=== PATIENT | male | born 1975 | race Caucasian/White ===

== ENCOUNTER 2017-07-21 20:31 | Emergency (ER) | payer BC, OTHER ==
[2017-07-21 20:38] VITALS: RESP 18
--- NOTE | 2017-07-21 20:50 | ED ---
General Adult HPI - General Chief complaint: Extremity Injury, Upper Stated complaint: arm injury Time Seen by Provider: 07/21/17 20:45 Source: patient, RN notes reviewed Mode of arrival: ambulatory Limitations: no limitations - History of Present Illness Initial comments: 41-year-old male presents to the emergency department with a chief complaint of right wrist pain. He stopped a piece of wood with his wrist earlier today and has continued to have pain. He states he was concerns without that he should be seen. He reveals ER visit the wrist however there is some pain at the ulnar aspect. Patient denies any other injury from the incident. Patient denies any other symptoms at this time. Pain is moderate.Patient denies any recent fever, chills, shortness of breath, chest pain, back pain, abdominal pain, nausea vomiting, numbness or tingling, dysuria or hematuria, constipation or diarrhea, headaches or visual changes, or any other current symptoms. - Related Data Home Medications Medication Instructions Recorded Confirmed Omeprazole [PriLOSEC] 20 mg PO AC-BRKFST 03/04/15 03/06/15 Previous Rx's Medication Instructions Recorded HYDROcodone/APAP 5-325MG [[place] 1 tab PO Q6HR PRN #20 tab 05/05/16 5-325] Hydrocortisone [Anusol-Hc] 30 gm RC BID #1 tube 05/05/16 Polyethylene Glycol 3350 [Miralax] 17 gm PO DAILY #527 gm 05/05/16 Allergies Allergy/AdvReac Type Severity Reaction Status Date / Time No Known Allergies Allergy Verified 05/05/16 12:04 Review of Systems ROS Statement: Those systems with pertinent positive or pertinent negative responses have been documented in the HPI. ROS Other: All systems not noted in ROS Statement are negative. Past Medical History Past Medical History: GERD/Reflux Additional Past Medical History / Comment(s): kidney stones History of Any Multi-Drug Resistant Organisms: None Reported Past Surgical History: Cholecystectomy Past Psychological History: No Psychological Hx Reported Smoking Status: Current every day smoker Past Alcohol Use History: Occasional Past Drug Use History: None Reported General Exam - General Exam Comments Initial Comments: General: The patient is awake and alert, in no distress, and does not appear acutely ill. Neck: The neck is supple, there is no tenderness. Cardiovascular: There is a regular rate and rhythm. No murmur, rub or gallop is appreciated. Respiratory: Lungs are clear to auscultation, respirations are non-labored, breath sounds are equal. No wheezes, stridor, rales, or rhonchi. Musculoskeletal: Sensation intact with 2+ pulses. X-ray. Fund motion of right elbow. Patient has find motion of the right wrist with some pain at the distal ulna. No tenderness throughout the right hand. No bruising or deformity noted. Neurological: CN II-XII intact, There are no obvious motor or sensory deficits. Coordination appears grossly intact. Speech is normal. Skin: Skin is warm and dry and no rashes or lesions are noted. Psychiatric: Normal mood and affect. Limitations: no limitations Course Vital Signs 07/21/17 20:34 Temperature 98 F Pulse Rate 93 Respiratory 18 Rate Blood Pressure 141/82 O2 Sat by Pulse 95 Oximetry Medical Decision Making - Medical Decision Making 41-year-old male presents for right wrist pain after a injury. At this time x- rays reviewed that does not show any acute injury. This time we discussed right wrist contusion. We discussed return parameters discussed follow-up and all patient's questions. They stated the Frankie management this plan. All questions have been answered. This time the patient will be discharged home. - Radiology Data Radiology results: report reviewed, image reviewed Disposition Clinical Impression: Contusion of right wrist Disposition: HOME SELF-CARE Condition: Stable Instructions: Contusion in Adults (ED) Additional Instructions: Please use medication as discussed. Please follow up with family doctor if symptoms have not improved over the next two days. Please return to the emergency room if your symptoms increase or worsen or for any other concerns. Referrals: Olamide Munroe MD [Primary Care Provider] - 1-2 days Time of Disposition: 21:55
--- NOTE | 2017-07-21 21:54 | XR ---
EXAMINATION TYPE: XR wrist complete RT , 4 VIEWS DATE OF EXAM ORDERED: 07/21/2017 HISTORY: Pain. COMPARISON: None. FINDINGS: No fracture, dislocation or other acute osseous lesion is seen. IMPRESSION: NORMAL RIGHT WRIST.
[2017-07-21 21:55] VITALS: BP 134/70; PULSE 80; TEMP 97
== END 2017-07-21 21:57 | disposition home or self-care (01) ==
LOC: EC 20:31
DX: S60.211A Contusion of right wrist, initial encounter (principal); K21.9 Gastro-esophageal reflux disease without esophagitis; F17.200 Nicotine dependence, unspecified, uncomplicated; Z79.899 Other long term (current) drug therapy; X50.9XXA Other and unspecified overexertion or strenuous movements or postures, initial encounter; Y93.89 Activity, other specified; Y92.89 Other specified places as the place of occurrence of the external cause
CPT/HCPCS: 99283

== ENCOUNTER → 2018-09-13 | Outpatient (CLI) | payer BC, OTHER ==
--- NOTE | 2018-09-13 20:56 | XR ---
EXAMINATION TYPE: XR foot limited bilateral DATE OF EXAM: 09/13/2018 COMPARISON: None HISTORY: Bilateral plantar nodules. TECHNIQUE: 2 views each foot FINDINGS: Metatarsals are intact. I see no fracture nor dislocation. There is no sign of radiopaque f oreign body. There are no erosions. There are no pathologic calcifications. There are right side plan tar and Achilles calcaneal spurs. IMPRESSION: Calcaneal spurring on the right side. No fracture. No sign of inflammatory arthritis.
== END ==
LOC: LABMAIN 19:40
PROVIDERS: ATTEND Nurse Practitioner
DX: M77.31 Calcaneal spur, right foot (principal)

== ENCOUNTER → 2022-03-24 | Outpatient (CLI) | payer OTHER ==
--- NOTE | 2022-03-24 09:24 | US ---
EXAMINATION TYPE: US abdomen limited DATE OF EXAM: 03/24/2022 COMPARISON: NONE CLINICAL HISTORY: R10.31 Right lower quadrant pain. Right lower abd pain for 4 days and it stopped, n o injury, no palp, assess for hernia Scanned soft tissue at area of pain in RLQ and there was no sonographic evidence of a herniation with or without valsalva. No evidence of mass or cystic structure. IMPRESSION: No evidence for herniation, no mass or cystic structure identified.
== END | disposition home or self-care (01) ==
LOC: RADUSWWP 08:20
PROVIDERS: ATTEND Family Medicine
DX: R10.31 Right lower quadrant pain (principal)
CPT/HCPCS: 76705

== ENCOUNTER → 2023-06-21 | Outpatient (CLI) | payer OTHER ==
--- NOTE | 2023-06-26 17:05 | CT ---
EXAMINATION TYPE: CT urogram wo/w con DATE OF EXAM: 06/21/2023 COMPARISON: None HISTORY: 47-year-old male R31.0, gross hematuria TECHNIQUE: Contiguous axial scanning of the abdomen and pelvis performed without and with IV Contrast , patient injected with 100ml mL of Isovue 370. Delayed images through the kidneys and bladder were o btained. Coronal/sagittal reconstructions performed. 3-D reconstructions generated on a dedicated [employer] workstation. CT DLP: 3901 mGycm Automated exposure control for dose reduction was used. FINDINGS: Heart normal size without pericardial effusion. Minimal emphysematous change in the visualized lower lungs. No pleural effusion. There is a tiny hernia. Liver borderline enlarged at 17.8 cm. Moderate to severe fatty infiltration with diminished attenuati on. Portal venous system is patent. No focal liver lesion. No biliary ductal dilatation. Cholecystect pilar clips. Adrenal glands, spleen, and pancreas within normal limits. Kidneys show no nephrolithiasis or hydronephrosis. No suspicious renal mass. No abnormal filling defect within the renal collecting systems. 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 Unclear if the 2 ureters joining just prior to th e UVJ or if there are separate bladder insertions. The former is favored. No abnormal lesion along ei ther ureters. No dilated small bowel, free fluid, or free air. No mesenteric or retroperitoneal adenopathy. Normal appendix. No significant stool burden. Mildly redundant sigmoid colon. Bladder is urine distended. However, there is a mural based irregular mass projecting into the lumen of the bladder measuring 1.8 cm left posteriorly just lateral to the left ureteral insertion. Prostate gland borderline in size at 3.9 cm with central calcifications. No abnormal fluid collection in the pelvis or pelvic lymphadenopathy. Bones: Moderate degenerative disc disease L5-S1 with mild facet arthropathy lower lumbar spine. IMPRESSION: 1. FINDINGS CONCERNING FOR A 1.8 CM BLADDER WALL MASS JUST LATERAL TO THE LEFT URETERAL INSERTION. FU RTHER EVALUATION FOR POTENTIAL UROTHELIAL NEOPLASM. 2. INCIDENTAL DUPLEX LEFT RENAL COLLECTING SYSTEM. THERE ARE 2 LEFT URETERS. UNABLE TO DETERMINE IF T HE 2 URETERS JOIN JUST PRIOR TO THE UVJ OR IF THEY HAVE 2 SEPARATE INSERTIONS. 3. 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
== END | disposition home or self-care (01) ==
LOC: RADCTMAIN 14:20
PROVIDERS: ATTEND Urology
DX: J43.9 Emphysema, unspecified (principal); K44.9 Diaphragmatic hernia without obstruction or gangrene; K76.0 Fatty (change of) liver, not elsewhere classified; N32.89 Other specified disorders of bladder; R31.0 Gross hematuria
CPT/HCPCS: 74178; 74400; Q9967

== ENCOUNTER → 2023-06-30 | Outpatient (CLI) | payer OTHER ==
[2023-07-01 02:03] LABS: BUN/Creat Ratio 13.25 Ratio (12.00-20.00); Blood Urea Nitrogen 15.9 mg/dL (9.0-27.0); Calcium 10.2 mg/dL (8.7-10.3); Carbon Dioxide 27.6 mmol/L (21.6-31.8); Chloride 102 mmol/L (96-109); Glucose 108 mg/dL (70-110); Potassium 4.3 mmol/L (3.5-5.5); Sodium 141 mmol/L (135-145)
[2023-07-01 02:13] LABS: Basophils # (A) 0.02 X 10*3/uL (0.00-0.10); Basophils % (A) 0.3 %; Eosinophils # (A) 0.11 X 10*3/uL (0.04-0.35); Eosinophils % (A) 1.4 %; HCT 47.7 % (39.6-50.0); HGB 15.7 g/dL (13.0-17.0); Lymphocytes # (A) 2.79 X 10*3/uL (0.90-5.00); Lymphocytes % (A) 36.1 %; MCHC 32.9 g/dL (32.0-37.0); MCV 85.2 FL (80.0-97.0); Mean Platelet Volume 9.8 FL (9.5-12.2); Monocytes # (A) 0.75 X 10*3/uL (0.20-1.00); Monocytes % (A) 9.7 %; NRBC Per 100 WBC 0 X 10*3/uL (0.00-0.01); Neutrophils # (A) 4.04 X 10*3/uL (1.80-7.70); Neutrophils % (A) 52.4 %; Platelet Count 261 X 10*3/uL (140-440); RDW 13.2 % (11.5-14.5); WBC 7.72 X 10*3/uL (4.50-10.00)
== END | disposition home or self-care (01) ==
LOC: LABPAT 14:33
PROVIDERS: ATTEND Urology
DX: Z01.812 Encounter for preprocedural laboratory examination (principal); D49.4 Neoplasm of unspecified behavior of bladder
CPT/HCPCS: 80048; 85025

== ENCOUNTER 2023-07-05 14:34 | Day surgery (SDC) | payer OTHER ==
[2023-07-01 09:39] VITALS: BMI 34.8
--- NOTE | 2023-07-01 12:50 | P.HPIHPCON ---
History of Present Illness H&P Date: 07/01/23 Chief Complaint: Bladder mass This is a 47-year-old male with history of gross hematuria, underwent a CT urogram showed no upper tract pathology, cystoscopy showed evidence of a bladder mass. Discussed with him given this finding I recommend proceeding with transurethral resection of bladder tumor. Aware of the risk which includes but not limited to bleeding, infection, bladder perforation. Risk of anesthesia was also discussed. He understood all the risk and agreed to proceed Consent for Procedure: I have explained the operation/procedure to the patient, including the risks, benefits, side effects, alternative therapies (including not receiving the proposed treatment or service), the likelihood of the patient achieving his/her goals, and potential recuperation problems for the procedure/sedation/analgesia, as well as any blood products, if indicated. I also explained to the patient the risks, benefits and side effects of the alternatives, as well as the risks related to not receiving the proposed procedure, care, treatment, or services. Past Medical History Past Medical History: GERD/Reflux, Hyperlipidemia, Hypertension Additional Past Medical History / Comment(s): hematuria, bladder spasms- cystoscopy in office,borderline diabetes,kidney stones,prednisone Apr 2023-only tooke 2 or 3 pills,snores really bad History of Any Multi-Drug Resistant Organisms: None Reported Past Surgical History: Cholecystectomy Past Anesthesia/Blood Transfusion Reactions: No Reported Reaction Additional Past Anesthesia/Blood Transfusion Reaction / Comment(s): no hx blood transfusion Smoking Status: Former smoker - Past Family History Mother Additional Family Medical History / Comment(s): heart problems Father Family Medical History: Cancer Additional Family Medical History / Comment(s): melanoma stage 4. Medications and Allergies Home Medications Medication Instructions Recorded Confirmed Type Omeprazole [PriLOSEC] 20 mg PO AC-BRKFST 03/04/15 07/01/23 History Cetirizine HCl [Zyrtec] 10 mg PO DAILY 07/01/23 07/01/23 History Ergocalciferol [Vitamin D2 (1250 1,250 mcg PO HONG 07/01/23 07/01/23 History Mcg = 93298 Iu)] Multivitamins, Thera [Multivitamin 1 tab PO DAILY 07/01/23 07/01/23 History (formulary)] Rosuvastatin Calcium 5 mg PO DAILY 07/01/23 07/01/23 History Tamsulosin HCl [Flomax] 0.4 mg PO QAM 07/01/23 07/01/23 History allopurinoL [Zyloprim] 300 mg PO QAM 07/01/23 07/01/23 History hydroCHLOROthiazide [Hydrodiuril] 25 mg PO QAM 07/01/23 07/01/23 History Allergies Allergy/AdvReac Type Severity Reaction Status Date / Time No Known Allergies Allergy Verified 07/01/23 09:06
[~2023-07-05 14:34] MED LIST: GENTAMICIN 450 MG in SODIUM CHLORIDE 0.9% 100 ML IVPB PRN
[2023-07-05 15:16] LABS: Glucose,Whole Blood 86 mg/dL (70-110)
[2023-07-05] MEDS ORDERED: LACTATED RINGERS 1,000 ML IV ONE (15:18)
[2023-07-05] MEDS ORDERED: ONDANSETRON 4 MG/2 ML VIAL ONE (15:39)
[2023-07-05] MEDS ORDERED: ONDANSETRON 4 MG/2 ML VIAL IVP ONE (15:42)
[2023-07-05] MEDS ORDERED: DEXAMETHASONE SOD PHOSPHATE 4 MG/ML 1 ML VIAL IVP ONE (15:42)
[2023-07-05] MEDS ORDERED: MIDAZOLAM 2 MG/2 ML VIAL ONE (16:35)
[2023-07-05] MEDS ORDERED: GLYCOPYRROLATE 0.2 MG/ML 2 ML VIAL ONE (16:35)
[2023-07-05] MEDS ORDERED: PROPOFOL 10 MG/ML 20 ML VIAL IV ONE (16:35)
[2023-07-05] MEDS ORDERED: fentaNYL (PF) 50 MCG/ML 2 ML AMP ONE (16:35)
[2023-07-05] MEDS ORDERED: SUCCINYLCHOLINE CHLORIDE 200 MG/10 ML VIAL IV ONE (16:35)
[2023-07-05] MEDS ORDERED: ROCURONIUM 10 MG/ML (5 ML VIAL) IV ONE (16:35)
[2023-07-05] MEDS ORDERED: LIDOCAINE 1% INJ 10MG/ML (20 ML MDV) ONE (16:35)
[2023-07-05] MEDS ORDERED: NEOSTIGMINE 1 MG/ML 10 ML VIAL ONE (16:35)
--- NOTE | 2023-07-05 17:27 | P.OP ---
Date of Procedure: 07/05/23 Preoperative Diagnosis: Bladder mass Postoperative Diagnosis: Same Procedure(s) Performed: TURBT ( medium) Implants: none Anesthesia: HELLEN Surgeon: Glenn Ennis Estimated Blood Loss (ml): 25 Pathology: other (bladder tumor) Condition: stable Disposition: PACU Indications for Procedure: This is a 47-year-old male with history of gross hematuria, underwent a CT urogram showed no upper tract pathology, cystoscopy showed evidence of a bladder mass. Discussed with him given this finding I recommend proceeding with transurethral resection of bladder tumor. Aware of the risk which includes but not limited to bleeding, infection, bladder perforation. Risk of anesthesia was also discussed. He understood all the risk and agreed to proceed Operative Findings: 3 cm papillary lesion along the left lateral wall Description of Procedure: patient brought to the operating room, general anesthesia was induced. He was prepped and draped in sterile fashion and placed in dorsal lithotomy position. Patient did have narrowing at navisularis fossa which was dilated using Calvert sounds to 28-Zambian. Next a resectoscope fitted with 25-Zambian sheath was inserted per urethra, cystoscopy was performed which showed a papillary lesion along the left lateral wall, no additional lesions within the bladder. Using the resectoscope the tumor was resected down to muscle. The area of resection was fulgurated, totally resection was 3 cm, the tumor was lateral to the left ureteral orifice. Repeat cystoscopy showed no evidence of bleeding or any additional lesions within the bladder, all tumor specimen was irrigated out. At this time the resectoscope was withdrawn and a 20-Zambian Shabazz was placed with return of clear urine. Patient tolerated the procedure was taken to recovery in stable condition
[2023-07-05] MEDS ORDERED: HYDROmorphone 0.5 MG/0.5 ML SYRINGE IVP ONE ×2 (17:55→18:12)
[2023-07-05 18:02] VITALS: RESP 16; TEMP 97.6
[2023-07-05] MEDS ORDERED: KETOROLAC 15 MG/ML 1 ML VIAL IVP ONE (18:32)
[2023-07-05 19:07] VITALS: PULSE 59
[2023-07-05 19:29] VITALS: BP 111/76
== END 2023-07-05 19:15 | disposition home or self-care (01) ==
LOC: OR 14:34
PROVIDERS: ATTEND Urology
DX: C67.9 Malignant neoplasm of bladder, unspecified (principal); K21.9 Gastro-esophageal reflux disease without esophagitis; I10 Essential (primary) hypertension; E78.5 Hyperlipidemia, unspecified; Z90.49 Acquired absence of other specified parts of digestive tract; Z98.890 Other specified postprocedural states; Z87.891 Personal history of nicotine dependence; Z80.8 Family history of malignant neoplasm of other organs or systems; Z79.899 Other long term (current) drug therapy
CPT/HCPCS: 52235; 88307; J2250; J0330; J1100; J2710; J2405; J2001; J3010; J1580; J1885; J2704; J1170

== ENCOUNTER → 2024-09-19 | Outpatient (CLI) | payer OTHER ==
--- NOTE | 2024-09-25 14:06 | P.PCN ---
Date of Procedure: 09/20/24 Operative Findings: Study testing History This is a 48-year-old male patient was referred to me for sleep apnea evaluation. The patient is coming in today accompanied by his . The patient has been noted to have loud snoring and he has been noted also. Breathing on multiple occasions during sleep. Throughout the night, the patient also wakes up choking and gasping for air. He has been feeling tired and sleepy during the day. He has trouble paying attention and is also having difficulties with memory and concentration. He goes to bed at around 10 PM and wakes up slightly in the morning. On weekends, he drinks beer, approximately 15 beers throughout the weekend. He is an ex smoker. No history of any motor vehicle accident because of feeling drowsy or sleepy. 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 Denies falling asleep behind the wheel although sometimes he struggles to stay awake. No grinding of the teeth. No nocturia. No palpitations. No heartburn. No nighttime shortness of breath or chest pain. The patient has no head trauma. No seizure activity. His current Wenden score is at 12. The patient takes a nap during the day at around 3 PM. No personal or family history of obstructive sleep apnea. He is a nose breather and wakes up with a dry mouth and he sleeps on his side. Physical findings Weight is 279 with a body mass index of 39.4 Technical description [employer] system was used to complete his home sleep study. This is a type III home sleep study evaluation. Total recording duration was 8 hours and 48 minutes. The study started at 9:49 PM and the study ended at 6:38 AM. A total of 8 hours and 36 minutes of flow monitoring and 8 hours and 34 minutes of oxygen saturation monitoring. Results Respiratory analysis showed a total of 242 obstructive apneas and 234 obstructive hypopneas. The resulting AHI was 55.3 consistent with severe RAMONA. The patient's disease was worse in the supine body position with an AHI of 73.3 while being supine. The patient had no significant central apneas. The central apnea index was 0.2 Oxygenation analysis The patient had a total of 474 oxygen saturation episodes with a pulse ox of by more than 4%. Baseline pulse ox during sleep was 90% and lowest oxygen saturation was 72% and the patient spent approximately 1 hours and 26 minutes of the sleep time below pulse ox of 89%. Cardiac summary The average heart rate was 75 with a minimum heart rate of 55 and a maximum heart rate of 111 Assessment Severe symptomatic RAMONA with an AHI of 55.3, worsening supine body position with an AHI of 73 while supine. Chronic hypersomnia along with history of snoring and sleep fragmentation witnessed apneas. The patient carries an Wenden score of 12. Loud snoring Obesity with a BMI of 39.4 Hypertension Hyperlipidemia BPH Gout History of bladder cancer underwent transurethral resection of bladder tumor. Plan Encourage weight loss Optimize sleep hygiene measures Maintain regular sleep schedule Avoid driving while feeling drowsy or sleepy Proceed with CPAP titration regarding severe symptomatic obstructive sleep apnea.
== END ==
LOC: 3 N SLEEP 10:58
PROVIDERS: ATTEND Internal Medicine Critical Care Medicine
DX: G47.33 Obstructive sleep apnea (adult) (pediatric) (principal); E66.9 Obesity, unspecified; I10 Essential (primary) hypertension; E78.5 Hyperlipidemia, unspecified; N40.0 Benign prostatic hyperplasia without lower urinary tract symptoms; M10.9 Gout, unspecified; F17.210 Nicotine dependence, cigarettes, uncomplicated; Z68.39 Body mass index [BMI] 39.0-39.9, adult; Z85.51 Personal history of malignant neoplasm of bladder

== ENCOUNTER 2024-10-30 19:40 | Outpatient (CLI) | payer OTHER ==
--- NOTE | 2024-11-07 08:32 | P.PCN ---
Date of Procedure: 10/30/24 Operative Findings: CPAP titration study Date of service is 10/30/2024 History This is a 48-year-old male patient was referred to me for sleep apnea evaluation. The patient is coming in today accompanied by his . The patient has been noted to have loud snoring and he has been noted also. Breathing on multiple occasions during sleep. Throughout the night, the patient also wakes up choking and gasping for air. He has been feeling tired and sleepy during the day. He has trouble paying attention and is also having difficulties with memory and concentration. He goes to bed at around 10 PM and wakes up slightly in the morning. On weekends, he drinks beer, approximately 15 beers throughout the weekend. He is an ex smoker. No history of any motor vehicle accident because of feeling drowsy or sleepy. 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 Denies falling asleep behind the wheel although sometimes he struggles to stay awake. No grinding of the teeth. No nocturia. No palpitations. No heartburn. No nighttime shortness of breath or chest pain. The patient has no head trauma. No seizure activity. His current [place] score is at 12. The patient takes a nap during the day at around 3 PM. No personal or family history of obstructive sleep apnea. He is a nose breather and wakes up with a dry mouth and he sleeps on his side. The patient underwent a home sleep study on 09/19/2024 and the patient was diagnosed having severe obstructive sleep apnea with an AHI of 55 worsening supine body position. The patient is coming in today to undergo a CPAP titration. Physical findings Weight is 279 with a body mass index of 39.4 Technical description The patient was studied using a standard complex polysomnography protocol that included recording of the Lead II EKG, Central, occipital and frontal EEG, right and left outer canthus EOG, submental EMG, right and left anterior tibialis EMG, respiratory airflow by thermocouple and or pressure/flow transducer, respiratory efforts by abdominal and thoracic PVDF belts, oxygen saturation by cable oximetry. Position by observation synchronized the PSG. Equipment used: [employer]. Stepwise CPAP titration was done to eliminate all obstructive respiratory events Sleep architecture The total recording duration was 353.5 minutes. The total sleep time was 215.5 minutes. The overall sleep efficiency was 61%. The wake after sleep onset time was 88 minutes. The latency to sleep onset was 54.5 minutes. The latest REM sleep was 84 minutes. The sleep architecture was characterized by 4.4% stage I, 66.4% stage II, 0% stage III and a total of 3 to percent REM sleep. The total arousal index was 5 CPAP titration summary The patient was started on CPAP therapy initially at a pressure of 9 cm of water pressure was gradually increased by increments of 1 cm to reach a maximum pressure of 15 cm of water. The patient was also given a trial of BiPAP pressures of 19/15 and a maximum BiPAP pressure of 23/19. I carefully reviewed the CPAP titration taking, the patient sleep stage and body position. CPAP therapy was more effective than BiPAP therapy. At a pressure of 15 cm of water, the patient had adequate elimination of the obstructive respiratory events without any significant residual obstructive hypopneas or apneas and there was also improvement in oxygen desaturations. Periodic movement events A total of 204 periodic movement events throughout the sleep study with an index of 56.8. There was only 1 periodic limb movement activity with arousals with an index of 0.3 Cardiac summary Average heart rate was 65 with a minimum heart rate of 60 and a maximum heart rate of 77 Assessment Severe symptomatic RAMONA with an AHI of 55.3, worsening supine body position with an AHI of 73 while supine. The patient underwent a successful CPAP titration. CPAP therapy was more effective than BiPAP therapy and as such the patient will be started on APAP treatment. Chronic hypersomnia along with history of snoring and sleep fragmentation witnessed apneas. The patient carries an [place] score of 12. Loud snoring Obesity with a BMI of 39.4 Hypertension Hyperlipidemia BPH Gout History of bladder cancer underwent transurethral resection of bladder tumor. Plan Initiate APAP therapy and the patient will be offered pressures of 8/15 cm of water. The patient will be offered a AirFit F20 medium size fullface mask Encourage weight loss Optimize sleep hygiene measures Maintain regular sleep schedule Avoid driving while feeling drowsy or sleepy See me back in follow-up in 30 to 90 days to assess clinical response and compliancy.
== END 2024-10-31 05:40 | disposition home or self-care (01) ==
LOC: 3 N SLEEP 19:40
PROVIDERS: ATTEND Internal Medicine Critical Care Medicine
DX: G47.33 Obstructive sleep apnea (adult) (pediatric) (principal); E66.9 Obesity, unspecified; E78.5 Hyperlipidemia, unspecified; I10 Essential (primary) hypertension; M10.9 Gout, unspecified; N40.0 Benign prostatic hyperplasia without lower urinary tract symptoms; F17.200 Nicotine dependence, unspecified, uncomplicated; Z68.39 Body mass index [BMI] 39.0-39.9, adult; Z99.89 Dependence on other enabling machines and devices; Z85.51 Personal history of malignant neoplasm of bladder
CPT/HCPCS: 95811